=== PATIENT | female | born 1975 | race Caucasian/White ===

== ENCOUNTER 2021-06-21 14:17 | Emergency (ER) | payer MEDICAID, SELFPAY ==
--- NOTE | ~2021-06-21 | XR_ITS ---
EXAMINATION: RIGHT HAND. RIGHT FOREARM. CLINICAL INFORMATION: Hand pain and arm pain COMPARISON: None TECHNIQUE: 3 views of the right hand to include the right wrist. 2 views of the right forearm. FINDINGS: Right hand and wrist: There is mild degenerative change observed in the second through fifth DIP joints with areas of subchondral cystic change. The MCP joints appear well preserved. There is degenerative change in the first IP joint and first CMC joint. No evidence though for fracture, dislocation or destructive process. 2 views of the right forearm show no fracture or destructive process. Included portions of the elbow appear intact as well. XR/XR hand RT min 3V IMPRESSION: Degenerative changes noted. No acute findings. MCP joints appear well preserved.
--- NOTE | ~2021-06-21 | XR_ITS ---
EXAMINATION: RIGHT HAND. RIGHT FOREARM. CLINICAL INFORMATION: Hand pain and arm pain COMPARISON: None TECHNIQUE: 3 views of the right hand to include the right wrist. 2 views of the right forearm. FINDINGS: Right hand and wrist: There is mild degenerative change observed in the second through fifth DIP joints with areas of subchondral cystic change. The MCP joints appear well preserved. There is degenerative change in the first IP joint and first CMC joint. No evidence though for fracture, dislocation or destructive process. 2 views of the right forearm show no fracture or destructive process. Included portions of the elbow appear intact as well. XR/XR forearm RT 2V IMPRESSION: Degenerative changes noted. No acute findings. MCP joints appear well preserved.
[2021-06-21 16:31] VITALS: BP 147/84; PULSE 91; RESP 16; TEMP 36.9; O2SAT 99; BMI 33.4
--- NOTE | 2021-06-21 17:29 | ED_ITS ---
HPI - Extremity Problem General Chief complaint: Extremity Injury, Upper Stated complaint: r hand fingers numb since 06/17 Time Seen by Provider: 06/21/21 17:29 History of Present Illness HPI Narrative: I did not see this patient was seen by another PA who wrote chart Related Data Previous Rx's Medication Instructions Recorded oxycodone-acetaminophen 5 mg-325 1 tab PO TID PRN #9 tab 06/21/21 mg tablet (Percocet) prednisone 20 mg tablet 60 mg PO DAILY 5 Days #15 tab 06/21/21 Allergies Allergy/AdvReac Type Severity Reaction Status Date / Time Penicillins Allergy Mild RASH Unverified 06/21/21 16:38 penicillin V Allergy Unknown Unknown Unverified 06/21/21 16:38 PMFSH Social History Social History Advance Directives: No Advance Directives Information Provided: No Patient : No Physical Exam Vital Signs: Vital Signs: Last Vital Signs Temp 98.5 F 06/21/21 16:31 Pulse 91 06/21/21 16:31 Resp 16 06/21/21 16:31 BP 147/84 H 06/21/21 16:31 Pulse Ox 99 06/21/21 16:31 BMI result Body Mass Index 33.4 Discharge Plan Discharge Clinical Impression: Degenerative arthritis of finger Patient Disposition: Home, Self-Care Instructions: Osteoarthritis (ED) Additional Instructions: Return to ED for any swelling, redness, bluish black discoloration, ecchymosis, pus discharge, foul odor, open wounds, coolness, hotness, or any other concerning symptoms. Please follow-up with primary care provider Prescriptions: New prednisone 20 mg tablet 60 mg PO DAILY 5 Days Qty: 15 RF: 0 oxycodone-acetaminophen [Percocet] 5-325 mg tablet 1 tab PO TID PRN (Reason: pain) Qty: 9 RF: 0 Interventions: ED Discharge Assessment Last Done: 06/21/21 18:20 Discharge Date/Time: 06/21/21 18:21 Print Language: Lithuanian
--- NOTE | 2021-06-21 17:49 | ED.EXTPRO ---
HPI - Extremity Problem General Chief complaint: Extremity Injury, Upper Stated complaint: r hand fingers numb since 06/17 Time Seen by Provider: 06/21/21 17:29 Source: patient Mode of arrival: ambulatory Limitations: no limitations History of Present Illness HPI Narrative: 46-year-old female presents to ED for right finger pain in hands since 06/17. Patient states pain and tingling. Patient denies any swelling, redness, ecchymosis, pus discharge, foul odor, or any recent trauma. Patient states pretty healthy. Patient states history of GERD Related Data Previous Rx's Medication Instructions Recorded oxycodone-acetaminophen 5 mg-325 1 tab PO TID PRN #9 tab 06/21/21 mg tablet (Percocet) prednisone 20 mg tablet 60 mg PO DAILY 5 Days #15 tab 06/21/21 Allergies Allergy/AdvReac Type Severity Reaction Status Date / Time Penicillins Allergy Mild RASH Unverified 06/21/21 16:38 penicillin V Allergy Unknown Unknown Unverified 06/21/21 16:38 Review of Systems Review of Systems: Yes all other systems are reviewed and are negative Constitutional: Constitutional: Reports as per HPI and Reports no additional constitutional complaints Eyes: Eyes: Reports as per HPI and Reports no additional eye complaints ENT: Reports system reviewed and no additional complaints, except as documented and Reports as per HPI Cardiovascular: Cardiovascular: Reports as per HPI and Reports no additional cardiovascular complaints Respiratory: Respiratory: Reports as per HPI and Reports no additional respiratory complaints Gastrointestinal: Gastrointestinal: Reports as per HPI and Reports no additional gastrointestinal complaints Genitourinary: Genitourinary: Reports no additional female genitourinary complaints and Reports as per HPI Musculoskeletal: Musculoskeletal: Reports no additional musculoskeletal complaints, Reports as per HPI and Reports arthralgias (right fingers) [facility] Social History Social History Advance Directives: No Advance Directives Information Provided: No Patient : No Physical Exam Vital Signs: Vital Signs: Last Vital Signs Temp 98.5 F 06/21/21 16:31 Pulse 91 06/21/21 16:31 Resp 16 06/21/21 16:31 BP 147/84 H 06/21/21 16:31 Pulse Ox 99 06/21/21 16:31 BMI result Body Mass Index 33.4 Const: General: cooperative, healthy appearing, comfortable, no acute distress, well developed, alert, awake and Physically active Orientation/consciousness: patient oriented x3 HENMT: Head: Yes normal to inspection, Yes No palpable skull fracture present, Yes normocephalic, Yes atraumatic and No abrasion Eyes: General: appearance normal, both eyes and all related structures Pupils: Equal, round and reactive pupils present Neck: Neck: Yes normal visual inspection, Yes full ROM, Yes no lymphadenopathy, Yes no meningeal signs, Yes trachea midline, Yes supple, No anterior neck swelling and No tender Chest: Chest palpation & inspection: normal inspection of the chest and normal palpation of entire chest wall Resp: Effort & Inspection: normal respiratory effort and able to speak in complete sentences Auscultation: clear to auscultation bilaterally Cardio: Jugular venous distension: no JVD Heart sounds: S1 normal heart sound present and S2 normal heart sound present GI: Inspection: Yes normal to inspection and No abdominal wall ecchymosis Palpation (GI): Soft to palpation, not firm, nontender, no guarding and not rigid : General: No CVA tenderness and Yes no CVA tenderness Back/Spine/Pelvis: Back: no CVA tenderness, No CVA tenderness and No back tenderness Skin: General skin exam: no rashes or lesions noted and elasticity normal Neuro: General: patient oriented x3, gait normal, tone normal, moves all extremities, no meningeal signs and CN's II-XI intact bilaterally Cranial nerves: Yes CN's II-XII intact bilaterally, Yes Facial sensation intact/muscles of mastication intact, Yes Intact sense of smell present, Yes Equal, round and reactive pupils present, Yes Normal accommodation reflex present, Yes Bilaterally intact EOM present, Yes Nystagmus not present, Yes Normal facial strength present, Yes Ability to bilaterally rotate head present and Yes Ability to bilaterally elevate shoulders present Extrem: Hand/finger images: 1. Patient has complete range of motion of all fingers. All fingers have capillary refill intact. All fingers negative for ecchymosis, erythema, deformity, pus discharge, foul odor, open wound, coldness, hotness, bluish/black discloration, or crepitus. Positive for tenderness on palpation of the IP and PIP joints. Motor/neuro/vascular exam intact of extremity. Psych: Appearance: grossly normal, well kempt and not disheveled Course Course Course Narrative: Patient was sent for x-ray. Reevaluation(s) Reevaluation #1: X-ray showed degenerative disc disease of fingers. Physical exam does not indicate cellulitis, septic joint, arterial occlusion, DVT, lymphangitis, or fracture. Patient will be discharged with steroids. Patient unable to take NSAIDs due to ulcer will discharge with narcotic. Time: 17:56 MDM - Extremity (Nontraumatic) MDM Narrative Medical decision making narrative: Degnerative disc disease Discharge Plan Discharge Clinical Impression: Degenerative arthritis of finger Patient Disposition: Home, Self-Care Instructions: Osteoarthritis (ED) Additional Instructions: Return to ED for any swelling, redness, bluish black discoloration, ecchymosis, pus discharge, foul odor, open wounds, coolness, hotness, or any other concerning symptoms. Please follow-up with primary care provider Prescriptions: New prednisone 20 mg tablet 60 mg PO DAILY 5 Days Qty: 15 RF: 0 oxycodone-acetaminophen [Percocet] 5-325 mg tablet 1 tab PO TID PRN (Reason: pain) Qty: 9 RF: 0 Interventions: ED Discharge Assessment Last Done: 06/21/21 18:20 Discharge Date/Time: 06/21/21 18:21 Print Language: Yoruba
== END 2021-06-21 18:21 | disposition home or self-care (01) ==
PROVIDERS: Emergency Provider Emergency Medicine Emergency Medical Services
DX: M19.041 Primary osteoarthritis, right hand (principal); M79.644 Pain in right finger(s)
CPT/HCPCS: 73090; 73130; 99283

== ENCOUNTER 2021-08-17 08:25 | Outpatient (REF) | payer OTHER, SELFPAY ==
[2021-08-18 01:54] LABS: CT PCR NOT DETECTED (Not Detect.); NG PCR NOT DETECTED (Not Detect.)
[2021-08-18 13:07] LABS: BV Int Neg Control Negative (Negative); BV Int Pos Control Positive (Positive)
[2021-08-24 01:46] LABS: HPV mRNA E6/E7 rflx Not Detected (Not Detected)
== END 2021-08-17 08:26 | disposition home or self-care (01) ==
LOC: HO.LAB 08:25
PROVIDERS: Visit Provider Advanced Practice Midwife
DX: Z01.419 Encounter for gynecological examination (general) (routine) without abnormal findings (principal); Z11.51 Encounter for screening for human papillomavirus (HPV); Z20.2 Contact with and (suspected) exposure to infections with a predominantly sexual mode of transmission; Z97.5 Presence of (intrauterine) contraceptive device; Z87.42 Personal history of other diseases of the female genital tract
CPT/HCPCS: 87480; 87491; 87510; 87591; 87624; 87660; 88142

== ENCOUNTER 2023-03-13 10:19 | Outpatient (AMB) | payer OTHER, SELFPAY ==
--- NOTE | 2023-03-13 10:39 | HO.SPINEOV ---
Intake Intake Visit Reasons: back pain Intake Note: Ms. Soriano is here today c/o low back pain. MRI done @ [place]/brought disc. Contract Administration Manager Required: No Allergies Penicillins Allergy (Mild, Unverified 08/17/21 08:31) RASH penicillin V Allergy (Unknown, Unverified 06/21/21 16:38) Unknown Assessment & Plan Assessment & Plan (1) Lumbar degenerative disc disease: Code(s): M51.36 - Other intervertebral disc degeneration, lumbar region Plan Dear Dr. Lopez Thank you for referring Laverne Soriano to the office today with a chief complaint of severe low back pain. 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 Pain is located in center off the lumbar sacral spine. She tried all forms of conservative treatments that are available, including anti-inflammatory drugs, rest, physical therapy, acupuncture, chiropractic therapy and epidural steroid injections. None of the therapies have work. She saw Dr. Thornton, neurosurgeon will offered her an L4-5 lumbar fusion in 2019 in which she was not interested. She comes to see me for another opinion. She denies radiation down her legs. She denies weakness or numbness. PMH: Tubal ligation Social history: Nonsmoker Medications: Celebrex Allergies: Penicillin Physical Exam: Pleasant lady. She is very emotional from pain. She points to the lumbar sacral spine. She has pain on palpation. Straight leg raise negative. No neurological deficits Radiological Studies: MRI of the lumbar spine done at [place] on 03/11/2023 was compared to an MRI of 2019 and showed shows [id number] progressive lumbar degenerative disc disease L2-3 and L3-4 and mild stable degenerative disc disease L4-5. The images were compared to an MRI of 2019 Impression/Plan: This patient is suffering from chronic intractable low back pain not respond to conservative treatments. I reviewed the MRI findings in detail with the patient and I do not think that a lumbar fusion would be beneficial. She is also not interested in surgery. I will refer to Dr. Schwartz from our pain management team to see if she is a candidate for basivertebral nerve ablation (Intracept) Thank you for allowing me to participate in your patients care. total time spent was 45 minutes in counseling ,coordination of plan, personal review of imaging, surgical decision making and subsequent plan Tanner Burk MD, PhD Spine Fellowship Trained Neurosurgeon Director, [facility] Orders: Referrals Pain Management Referral M51.36 - Other intervertebral disc degeneration, lumbar region Coding Level of Care Code New Pt Level 4 (39998) Diagnoses Lumbar degenerative disc disease M51.36
== END 2023-03-13 11:18 | disposition home or self-care (01) ==
PROVIDERS: Referring Provider Internal Medicine; Visit Provider Neurological Surgery
DX: M51.36 Other intervertebral disc degeneration, lumbar region (principal)
CPT/HCPCS: 99204

== ENCOUNTER → 2023-03-13 10:19 | Outpatient (BNVA) | payer OTHER, SELFPAY | PROVIDERS: Visit Provider Neurological Surgery ==

== ENCOUNTER 2023-03-25 14:55 | Outpatient (AMB) | payer OTHER, SELFPAY ==
--- NOTE | 2023-03-25 14:59 | MHC.OFFVIS ---
Intake Vital Signs 03/25/23 15:00 Height 5 ft 1 in Weight 173 lb BMI 32.7 BP 127/87 Blood Pressure Location Lt brachial Position Sitting Respiration 14 Pulse 107 H Pulse Source Pulse Oximeter Pulse Oximetry (%) 99 Oxygen Delivery Method Room Air Intake Visit Reasons: lumbar disc degeneration Allergies Penicillins Allergy (Mild, Verified 03/25/23 15:02) RASH Medication List - Last Reconciled 03/25/23 by Haven Monte LPN celecoxib 200 mg PO BID levonorgestrel (Mirena) intrauterine HPI lumbar disc degeneration HPI Details 47-year-old female who presents today to the office for an evaluation of lumbar disc degeneration The patient developed severe chronic low back pain 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 The pain is located in the mid-region of the lumbar sacral spine. Her pain is mostly in the axial low back, with some radiation to the right upper back and right buttock. It is rated at 7-9/10 in intensity, but the worst of it is in the mid lower back. She is unable to sleep normally. It is constant throughout the day. It is described as sharp, aching, stabbing sensations. She states that her pain is radiating down to her buttock region for past two months. She has difficulty standing or walking. She tried multiple conservative treatments, including anti-inflammatory drugs, rest, physical therapy, acupuncture, chiropractic therapy, massage therapy, TENS therapy, a home traction device, and epidural steroid injections, with no benefits. She denies radiation down her legs. She denies weakness or numbness. She has had diagnostic & therapeutic injections in the past but is not sure about the names. [facility] Surgical History (Updated 08/17/21 @ 08:34 by Mark Guerrero CMA) History of tubal ligation Family History (Updated 08/17/21 @ 08:33 by Mark Guerrero CMA) Mother Diabetes HTN (hypertension) Stroke Social History (Updated 08/17/21 @ 08:33 by Mark Guerrero CMA) Alcohol intake: never Patient Tobacco Use Status: Former Tobacco user Gender identity: Female Female Reproductive History Menstrual Age of Menarche: 10 Review of Systems Const All systems reviewed & are unremarkable except as noted in HPI and below Physical Exam Vital Signs: Last Vital Signs Pulse 107 H 03/25/23 15:00 Resp 14 03/25/23 15:00 BP 127/87 03/25/23 15:00 Pulse Ox 99 03/25/23 15:00 Oxygen Delivery Method Room Air 03/25/23 15:00 BMI result Body Mass Index 32.7 General: Appears afebrile. Alert and oriented. Mood and affect appropriate. Follows and participates in conversation appropriately. Respiratory effort is unlabored. Able to transition from sit to stand unassisted. Ambulates with bilaterally normal heel strike and toe off. Lumbar extension and flexion reproduce pain. Results Reviewed Results Reviewed: Review of MRI shows multi level degenerative disk disease most pronounced at L2-3 and L3-4 levels with a broad disc bulge at L3-4 level. She also has significant facet at L3-4 as well as L4-5 levels. L5-S1 level is relatively well preserved. There mild to moderate central canal stenosis at L3-4 and L4-5 level with ligamentum flavum measuring 5-6 mm. Assessment & Plan Assessment & Plan (1) Lumbar degenerative disc disease: Code(s): M51.36 - Other intervertebral disc degeneration, lumbar region (2) Intractable low back pain: Code(s): M54.59 - Other low back pain (3) Spinal stenosis, lumbar region with neurogenic claudication: Code(s): M48.062 - Spinal stenosis, lumbar region with neurogenic claudication Plan I discussed peripheral nerve stimulation for the medial branches for facet-mediated pain as well as minimally invasive lumbar decompression for moderate spinal stenosis, especially at the L2-3 and L3-4 levels. She does endorse pain with ambulation. She does not have findings to suggest that the Intracept procedure would be helpful since there are no significant modic changes on the end plates. I will schedule her for a right L3 medial branch nerve stimulator to start with. Discussed the risks and benefits of the procedure with the patient in detail. All questions were answered. The patient is on board with the plan. For the time being, I recommend trying core strengthening exercises, maintaining good postures, swimming, and inversion table at home for the discogenic/neurogenic component. Justification for interventional therapy: * Patient with average pain > 6/10 * The patient has exhausted extensive conservative and interventional therapy as noted above Scribed for Dr. Schwartz by Leopoldo Roque, medical office scheduler, on 03/25/2023. I, Dr. Schwartz, have personally reviewed and agree with the information entered by the scribe. Coding Level of Care Code New Pt Level 4 (07228) Diagnoses Lumbar degenerative disc disease M51.36 Intractable low back pain M54.59 Spinal stenosis, lumbar region with neurogenic claudication M48.062
[2023-03-25 15:00] VITALS: BP 127/87; PULSE 107; RESP 14; O2SAT 99; BMI 32.7
== END 2023-03-25 15:58 | disposition home or self-care (01) ==
PROVIDERS: Visit Provider Internal Medicine
DX: M51.36 Other intervertebral disc degeneration, lumbar region (principal); M54.59 Other low back pain; M48.062 Spinal stenosis, lumbar region with neurogenic claudication
CPT/HCPCS: 99204

== ENCOUNTER → 2023-03-25 14:55 | Outpatient (BNVA) | payer OTHER, SELFPAY | PROVIDERS: Visit Provider Internal Medicine ==

== ENCOUNTER 2023-06-05 06:26 | Day surgery (SDC) | payer OTHER, SELFPAY ==
--- NOTE | ~2023-06-05 | FL_ITS ---
EXAMINATION: XR FLUOROSCOPY WITH IMAGES CLINICAL INFORMATION: L3 SPRINT. COMPARISON: None available. TECHNIQUE: Fluoroscopy Supervised By: Dr. Amilcar Schwartz. Fluoroscopy Time: 0.01 minutes. Cumulative Dose: 2.41 mGy. DAP: 0.389 Gycm2. Images: 4. FINDINGS: Images demonstrate wire/leads projecting over the lumbar spine. FL/FL guidance in OR IMPRESSION: Fluoroscopy guidance for pain management procedure
[2023-06-05 06:37] VITALS: BP 167/66; PULSE 96; RESP 16; TEMP 36.3; O2SAT 98; BMI 33.4
[2023-06-05 08:14] VITALS: BP 130/80; PULSE 80; RESP 16; TEMP 36.7; O2SAT 98
--- NOTE | 2023-06-05 08:15 | MHC.SHP ---
Pre-Procedural Eval Section A Date of Service: 06/05/23 The patient is an INPATIENT: No Changes since office visit: Yes Patient answered all questions The History & Physical has been completed within 30 days and I have reviewed it.: No Section B Chief Complaint: Intractable low back pain Relevant Family History (Specify if Yes): No Relevant Social History: None Present Medications: see Short Stay Collaborative assessment Medical History: No relevant PMH History of Previous Operations: No relevant previous surgery Allergies: Allergies Allergy/AdvReac Type Severity Reaction Status Date / Time Penicillins Allergy Mild RASH Verified 06/05/23 06:32 Review of Systems Sugical H&P ROS: Negative: Constitution, Cardiovascular and Respiratory Exam Surgical H&P Exam: Normal: HEENT, Normal: Heart and Normal: Lungs Plan Diagnosis/Plan: Unchanged I have reviewed the history and physical and performed a pertinent physical examination on my patient. No changes have occurred unless specified. Time Spent With Patient Time: Total time managing care of this patient today ____ minutes.
--- NOTE | 2023-06-05 08:16 | PM.OP ---
Brief Operative Note Date of Service: 06/05/23 Pre-op diagnosis: Intractable low back pain Post-op diagnosis: same Procedure: Temporary right L3 medial branch nerve stimulator placement Implants: Sprint temporary PNS system Surgeon: Amilcar Schwartz MD Anesthesia: local Was an Telephone Services Sales Representative used for this Procedure?: No Estimated blood loss (mL): 1 Pathology: none sent Condition: stable Disposition: same day
--- NOTE | 2023-06-05 08:16 | W.PM.OPN ---
Operative Note Operative Note Date of Service: 06/05/23 Narrative: Lumbar Medial Branch Nerve Stimulation Lead Placement, SPR (Sprint) System, Right L3 ? After the risks, benefits and alternatives were discussed with the patient and informed consent was obtained, patient was placed in the prone position and padded to foster comfort. The skin overlying the lumbosacral spine was prepped and draped in sterile fashion. Fluoroscopy was used to identify the spinous process and lamina in the center of the patient?s region of pain. After identifying and marking the intended target along the course of the medial branch nerve, the skin around the planned entry point and the subcutaneous tissues were injected with lidocaine 1%. An introducer needle and stimulating probe were assembled, inserted and advanced along the intended course of the medial branch nerve as it traverses the lamina medial and inferior to the zygapophyseal joint, taking care to maintain the proper depth of insertion as the introducer is advanced under fluoroscopic guidance. The introducer needle was delivered to a location in proximity to the nerve. Multiple stimulation parameters were used to deliver stimulation to the target medial branch nerve in concert with stimulating at multiple positions around the nerve. Nerve target acquisition was confirmed noting generation of paresthesias in the paravertebral regions corresponding to the level being stimulated. Various electrical parameter combinations were tested, and the lead location was adjusted (physically relocated) until the patient indicated paresthesia/muscle tension overlapping the distribution of the patient?s typical region of pain. The stimulating probe was removed from the introducer and a percutaneous lead was guided through the needle and delivered to a location in similar proximity to the nerve. Final location was verified with electrical stimulation and documented with fluoroscopy. The introducer needle was removed, and the exposed end of the percutaneous lead was attached to an external stimulator unit. Various electrical parameter combinations were again tested until the patient indicated paresthesia or muscle tension overlapping the distribution of the patient?s typical region of pain. After confirming that lead impedance was in the normal range, the external unit was detached, the needle was removed, and the lead was anchored at the skin. The lead was threaded into the connector block and electrical continuity and desired patient response was confirmed. The connector block was attached to the external stimulator unit. The site was covered with a sterile occlusive dressing. The patient was observed for stability of vital signs and comfort.
== END 2023-06-05 08:42 | disposition home or self-care (01) ==
PROVIDERS: PCP Internal Medicine; Visit Provider Internal Medicine
PROC: (CPT 64555; principal; 2023-06-05 08:20)
DX: M54.59 Other low back pain (principal); G89.29 Other chronic pain; M51.36 Other intervertebral disc degeneration, lumbar region; R26.2 Difficulty in walking, not elsewhere classified; M48.062 Spinal stenosis, lumbar region with neurogenic claudication; Z87.891 Personal history of nicotine dependence; Z79.899 Other long term (current) drug therapy; Z88.0 Allergy status to penicillin; Z98.51 Tubal ligation status
CPT/HCPCS: 64555; C1778

== ENCOUNTER → 2023-06-05 06:26 | Outpatient (BNV) | payer OTHER, SELFPAY | PROVIDERS: PCP Internal Medicine; Visit Provider Internal Medicine | DX: M54.50 Low back pain, unspecified (principal) | CPT/HCPCS: 64555 ==

== ENCOUNTER 2023-06-10 07:57 | Outpatient (AMB) | payer OTHER, SELFPAY ==
--- NOTE | 2023-06-10 08:00 | MHC.OFFVIS ---
Intake Vital Signs 06/10/23 08:02 Height 5 ft 1 in Weight 175 lb BMI 33.1 BP 145/75 H Blood Pressure Location Lt brachial Position Sitting Respiration 12 Pulse 89 Pulse Source Pulse Oximeter Pulse Oximetry (%) 97 Oxygen Delivery Method Room Air Intake Visit Reasons: s/p Sprint/lvm Allergies Penicillins Allergy (Mild, Verified 06/10/23 08:03) RASH Medication List - Last Reconciled 06/10/23 by Haven Monte LPN celecoxib 200 mg PO BID levonorgestrel (Mirena) 1 device intrauterine DIRECTED HPI s/p Sprint/lvm HPI Details 48-year-old female who presents today to the office following placement of a peripheral nerve stimulation device in her lower back. The patient reports moderate pain relief following the procedure. The patient uses the device for 12 hours each day and turns it off at night. She reports that her pain returns one hour after turning off the device. She has mild itching. She has no difficulty changing dressings. Past procedure: 06/05/23: Lumbar Medial Branch Nerve Stimulation Lead Placement, SPR (Sprint) System, Right L3: therapy ongoing [facility] Surgical History (Updated 08/17/21 @ 08:34 by aMrk Guerrero CMA) History of tubal ligation Family History (Updated 08/17/21 @ 08:33 by Mark Guerrero CMA) Mother Diabetes HTN (hypertension) Stroke Social History (Updated 08/17/21 @ 08:33 by Mark Guerrero CMA) Alcohol intake: never Patient Tobacco Use Status: Former Tobacco user Quit Date: 2019 Tobacco use type: Cigarette Years Smoked: 20 Gender identity: Female Female Reproductive History Menstrual Age of Menarche: 10 Review of Systems Const All systems reviewed & are unremarkable except as noted in HPI and below Physical Exam Vital Signs: Last Vital Signs Pulse 89 06/10/23 08:02 Resp 12 06/10/23 08:02 BP 145/75 H 06/10/23 08:02 Pulse Ox 97 06/10/23 08:02 Oxygen Delivery Method Room Air 06/10/23 08:02 BMI result Body Mass Index 33.1 General: Appears afebrile. Alert and oriented. Mood and affect appropriate. Follows and participates in conversation appropriately. Respiratory effort is unlabored. Able to transition from sit to stand unassisted. Ambulates with bilaterally normal heel strike and toe off. Lead insertion site is clean dry and intact. Results Reviewed Results Reviewed: No imaging is available for review. Assessment & Plan Assessment & Plan (1) Intractable low back pain: Code(s): M54.59 - Other low back pain Plan Site was clean, dry, and intact. Counseled patient regarding maximizing use of the device during awake hours. Patient expressed understanding. The patient will followup in seven weeks for removal of nerve stimulator. Scribed for Dr. Schwartz by Leopoldo Roque medical chief technician, on 06/10/2023. I, Dr. Schwartz, have personally reviewed and agree with the information entered by the scribe. Coding Level of Care Code Est Pt Level 3 (19254) Diagnoses Intractable low back pain M54.59
[2023-06-10 08:02] VITALS: BP 145/75; PULSE 89; RESP 12; O2SAT 97; BMI 33.1
== END 2023-06-10 08:29 | disposition home or self-care (01) ==
PROVIDERS: PCP Internal Medicine; Visit Provider Internal Medicine
DX: M54.59 Other low back pain (principal)
CPT/HCPCS: 99024

== ENCOUNTER → 2023-06-10 07:57 | Outpatient (BNVA) | payer OTHER, SELFPAY | PROVIDERS: PCP Internal Medicine; Visit Provider Internal Medicine | DX: M54.59 Other low back pain (principal) | CPT/HCPCS: 99212 ==

== ENCOUNTER 2023-07-19 08:12 | Outpatient (AMB) | payer OTHER, SELFPAY ==
--- NOTE | 2023-07-19 08:22 | A.OFFVIS_ITS ---
Intake Vital Signs 07/19/23 08:23 Height 5 ft 1 in Weight 177 lb BMI 33.4 BP 148/70 H Blood Pressure Location Lt brachial Position Sitting Respiration 12 Pulse 93 Pulse Source Pulse Oximeter Pulse Oximetry (%) 98 Oxygen Delivery Method Room Air Intake Visit Reasons: Sprint removal/lvm Allergies Penicillins Allergy (Mild, Verified 07/19/23 08:25) RASH Medication List - Last Reconciled 07/19/23 by Haven Monte LPN celecoxib 200 mg PO BID levonorgestrel (Mirena) 1 device intrauterine DIRECTED HPI Sprint removal/lvm HPI Details 48-year-old female who presents today to the office for a sprint removal. The patient reports 75% relief following the procedure. She reports significant relief while using the device but once she turned off the device her pain started coming back. She had significant relief on the right side and no relief on the left side. She reports worsening of the pain when standing or walking that is not resolved after resting or sitting down. She states that bending forward while walking provide mild relief but she avoid bending. She has tried cortisone injectiosn in the past. She had MRI completed at [facility]. She is here to discuss the future treatment options today. Past procedure: 06/05/23: Lumbar Medial Branch Nerve Sti mulation Lead Placement, SPR (Sprint) System, Right L3: 75% relief during therapy. [facility] Surgical History (Updated 08/17/21 @ 08:34 by Mark Guerrero CMA) History of tubal ligation Family History (Updated 08/17/21 @ 08:33 by Mark Guerrero CMA) Mother Diabetes HTN (hypertension) Stroke Social History (Updated 08/17/21 @ 08:33 by Mark Guerrero CMA) Alcohol intake: never Patient Tobacco Use Status: Former Tobacco user Quit Date: 2019 Tobacco use type: Cigarette Years Smoked: 20 Gender identity: Female Female Reproductive History Menstrual Age of Menarche: 10 Review of Systems Const All systems reviewed & are unremarkable except as noted in HPI and below Physical Exam Vital Signs: Last Vital Signs Pulse 93 07/19/23 08:23 Resp 12 07/19/23 08:23 BP 148/70 H 07/19/23 08:23 Pulse Ox 98 07/19/23 08:23 Oxygen Delivery Method Room Air 07/19/23 08:23 BMI result Body Mass Index 33.4 General: Appears afebrile. Alert and oriented. Mood and affect appropriate. Follows and participates in conversation appropriately. Respiratory effort is unlabored. Able to transition from sit to stand unassisted. Ambulates with bilaterally normal heel strike and toe off. Lead removed with tip intact. Results Reviewed Results Reviewed: No imaging is available for review. Assessment & Plan Assessment & Plan (1) Intractable low back pain: Code(s): M54.59 - Other low back pain (2) Lumbar degenerative disc disease: Code(s): M51.36 - Other intervertebral disc degeneration, lumbar region (3) Spinal stenosis, lumbar region with neurogenic claudication: Code(s): M48.062 - Spinal stenosis, lumbar region with neurogenic claudication Plan The sprint was removed today. Discussed permanent nerve stimulators vs. RFA as a possible treatment option for her facet mediated pain. She also has some evidence of neurogenic claudication on history with positive relief of symptoms on forward flexion, but she would like to take the least invasive course at this point. She will think about a lumbar facet RFA as the next step, and if she is interested, we will schedule her for bilateral lower lumbar diagnostic MB block, followed by lower lumbar radiofrequency ablation. Scribed for Dr. Schwartz by Leopoldo Roque, medical attendant, on 07/19/2023. I, Dr. Schwartz, have personally reviewed and agree with the information entered by the scribe. Coding Level of Care Code Est Pt Level 3 (79693) Diagnoses Intractable low back pain M54.59 Lumbar degenerative disc disease M51.36 Spinal stenosis, lumbar region with neurogenic claudication M48.062
[2023-07-19 08:23] VITALS: BP 148/70; PULSE 93; RESP 12; O2SAT 98; BMI 33.4
== END 2023-07-19 08:37 | disposition home or self-care (01) ==
PROVIDERS: PCP Internal Medicine; Visit Provider Internal Medicine
DX: M54.59 Other low back pain (principal); M51.36 Other intervertebral disc degeneration, lumbar region; M48.062 Spinal stenosis, lumbar region with neurogenic claudication
CPT/HCPCS: 99213

== ENCOUNTER → 2023-07-19 08:12 | Outpatient (BNVA) | payer OTHER, SELFPAY | PROVIDERS: PCP Internal Medicine; Visit Provider Internal Medicine | DX: M54.59 Other low back pain (principal); M51.36 Other intervertebral disc degeneration, lumbar region; M48.062 Spinal stenosis, lumbar region with neurogenic claudication | CPT/HCPCS: 99212 ==

== ENCOUNTER 2024-06-12 16:13 | Emergency (ER) | payer OTHER, SELFPAY ==
[2024-06-12 16:14] VITALS: BP 176/100; PULSE 118; RESP 20; TEMP 36.6; O2SAT 99; BMI 33.3
--- NOTE | 2024-06-12 16:15 | ED_ITS ---
HPI - General Adult General Chief complaint: Skin/Abscess/Foreign Body Stated complaint: Abscess R armpit Related Data Home Medications ?Medication ?Instructions ?Recorded ?Confirmed levonorgestrel 21 mcg/24 hr (up to 1 device intrauterine DIRECTED 08/17/21 07/19/23 8 years) 52 mg intrauterine device (Mirena) celecoxib 200 mg capsule 200 mg PO BID 03/25/23 07/19/23 Allergies Allergy/AdvReac Type Severity Reaction Status Date / Time Penicillins Allergy Mild RASH Verified 06/12/24 16:16 [facility] Past Medical History Surgical History (Updated 08/17/21 @ 08:34 by Mark Guerrero CMA) History of tubal ligation Family History Family History (Updated 08/17/21 @ 08:33 by Mark Guerrero CMA) Mother Diabetes HTN (hypertension) Stroke Social History Social History (Updated 08/17/21 @ 08:33 by Mark Guerrero CMA) Alcohol intake: never Patient Tobacco Use Status: Former Tobacco user Tobacco use type: Cigarette Years Smoked: 20 Advance Directives: No Advance Directives Information Provided: No Gender identity: Female Physical Exam ED Vital Signs: Vital Signs - 24 hr 06/12/24 16:14 06/12/24 18:00 Temperature 97.8 F 97.3 F Pulse Rate 118 H 99 Respiratory Rate 20 18 Blood Pressure 176/100 H 134/76 Pulse Oximetry 99 100 Oxygen Delivery Method Room Air Room Air BMI result Body Mass Index 33.3 Course Course Course Narrative: This is a rapid medical exam performed by Tia Day NP: Additional HPI, ROS, PE not included below will be deferred to primary provider. Patient is a 49-year-old female with history of partial mastectomy in August of 2023 presenting with complaint of abscess to right axilla since the weekend. Spontaneously draining but only a small amount. Started doxycycline on Sat without improvement. Fevers prior to doxy but none since. Plan: labs Medical Decision Making Lab Data 06/12/24 16:24 06/12/24 16:24 Labs: Lab Results 06/12/24 Range/Units 16:24 WBC 9.8 (4.8-10.8) X10*3/uL RBC 4.08 L (4.20-5.50) X10*6/uL Hgb 9.4 L (12.0-16.0) g/dl Hct 30.3 L (37.0-47.0) % MCV 74.3 L (80.0-98.0) fL MCH 23.0 L (27.0-33.0) pg MCHC 31.0 (31.0-35.0) g/dl RDW 15.3 (11.0-16.0) % Plt Count 369 (160-400) X10*3/uL MPV 9.3 L (9.4-12.3) fL Immature Gran % (Auto) 0.3 (0.0-0.4) % Neut % (Auto) 70.3 (45-73) % Lymph % (Auto) 20.3 (20-40) % [place] % (Auto) 7.2 (2-11) % Eos % (Auto) 1.3 (0-4) % Baso % (Auto) 0.6 (0-2) % Lymph # (Auto) 2.0 (1.2-4.9) X10*3/uL [place] # (Auto) 0.7 (0.1-1.2) X10*3/uL Eos # (Auto) 0.1 (0.0-0.4) X10*3/uL Baso # (Auto) 0.1 (0.0-0.2) X10*3/uL Abs Immat Gran (auto) 0.03 (0.00-0.03) X10*3/uL Absolute Neuts (auto) 6.9 (2.0-8.3) x10*3/uL Absolute Nucleated RBC 0.000 (0.0-0.012) X10*3/uL Nucleated RBC % (auto) 0.0 (0.0-0.2) /100WBC Sodium 141 (135-145) mmol/L Potassium 3.8 (3.3-5.1) mmol/L Chloride 107 (96-108) mmol/L Carbon Dioxide 25 (22-29) mmol/L Anion Gap 13 (12-20) BUN 15 (9-16) mg/dL Creatinine 0.74 (0.5-1.4) mg/dL Estim Creat Clear Calc 88.0 Estimated GFR > 60 Random Glucose 98 (60-115) mg/dL Calcium 9.4 (8.4-10.2) mg/dL Total Bilirubin 0.2 (0.0-1.0) mg/dL AST 28 (5-31) U/L ALT 42 H (0-31) U/L Alkaline Phosphatase 101 (39-117) U/L Total Protein 7.7 (6.5-8.0) g/dL Albumin 4.2 (3.5-5.0) g/dL Discharge Plan Discharge Clinical Impression: Diagnosis unknown Patient Disposition: Left W/O Completing Treatment Prescriptions: No Action Mirena 20 mcg/24 hours (7 yrs) 52 mg intrauterine device 1 device intrauterine DIRECTED celecoxib 200 mg capsule 200 mg PO BID Discharge Date/Time: 06/12/24 23:04
[2024-06-12 16:28] LABS: MANUAL DIFF FLAG NO
[2024-06-12 16:29] LABS: Basophils Absolute Auto 0.1 X10*3/uL (0.0-0.2); Basophils Percent Auto 0.6 % (0-2); Eosinophils Absolute Auto 0.1 X10*3/uL (0.0-0.4); Eosinophils Percent Auto 1.3 % (0-4); Hematocrit 30.3 % (37.0-47.0); Hemoglobin 9.4 g/dl (12.0-16.0); Imm Gran Abs Auto 0.03 X10*3/uL (0.00-0.03); Imm Gran Pct Auto 0.3 % (0.0-0.4); Lymphocytes Percent Auto 20.3 % (20-40); Mean Corpuscular Volume 74.3 fL (80.0-98.0); Mean Platelet Volume 9.3 fL (9.4-12.3); Monocytes Absolute Auto 0.7 X10*3/uL (0.1-1.2); Monocytes Percent Auto 7.2 % (2-11); Neutrophils Absolute Auto 6.9 x10*3/uL (2.0-8.3); Neutrophils Percent Auto 70.3 % (45-73); Platelet Count 369 X10*3/uL (160-400); Red Blood Count 4.08 X10*6/uL (4.20-5.50); Red Cell Distribution Width 15.3 % (11.0-16.0); White Blood Count 9.8 X10*3/uL (4.8-10.8)
[2024-06-12 17:01] LABS: Albumin Level 4.2 g/dL (3.5-5.0); Anion Gap 13 (12-20); Aspartate Amino Transferase 28 U/L (5-31); Bilirubin Total 0.2 mg/dL (0.0-1.0); Blood Urea Nitrogen 15 mg/dL (9-16); Calcium 9.4 mg/dL (8.4-10.2); Carbon Dioxide 25 mmol/L (22-29); Chloride 107 mmol/L (96-108); Estimated Glomerular Filt Rate > 60; Glucose Random 98 mg/dL (60-115); Potassium 3.8 mmol/L (3.3-5.1); Sodium 141 mmol/L (135-145); Total Protein 7.7 g/dL (6.5-8.0)
[2024-06-12 17:10] LABS: Alanine Aminotransferase 42 U/L (0-31); Alkaline Phosphatase 101 U/L (39-117)
[2024-06-12 18:00] VITALS: BP 134/76; PULSE 99; RESP 18; TEMP 36.3; O2SAT 100
== END 2024-06-12 23:04 | disposition left against medical advice (07) ==
PROVIDERS: Registered Nurse Emergency; Emergency Provider Emergency Medicine
DX: L02.411 Cutaneous abscess of right axilla (principal)
CPT/HCPCS: 36415; 80053; 85025; 99283